=== PATIENT | female | born 1950 | race Caucasian/White ===

== ENCOUNTER 2022-06-07 19:57 | Inpatient (IN) | payer MEDICARE, BC, OTHER ==
[~2022-06-07] VITALS: Ht 152.4 cm; Wt 52.2 kg
--- NOTE | 2022-06-07 20:00 | NUR ---
Dr. Welsh at bedside. MSE in progress.
[2022-06-07] MEDS ORDERED: INSULIN REGULAR, HUMAN 300 UNIT/3 ML VIAL IV ONE (20:15)
[2022-06-07 20:27] LABS: HEMATOCRIT 23.6 % (31.2-41.9); MEAN CORPUSCULAR VOLUME 101.5 fL (75.5-95.3); PLATELET COUNT (AUTO) 154 K/uL (179-408)
[2022-06-07 20:35] LABS: CARBON DIOXIDE 35 mmol/L (21-32); CHLORIDE 89 mmol/L (98-107); CREATININE 4.4 mg/dL (0.6-1.3); GLUCOSE 290 mg/dL (74-106); POTASSIUM 2.9 mmol/L (3.5-5.1); UREA NITROGEN, BLOOD 39 mg/dL (7-18)
--- NOTE | 2022-06-07 20:35 | NUR ---
Accucheck done on patient and it showed 289.
[2022-06-07] MEDS ORDERED: POTASSIUM BICARBONATE/CIT AC 25 MEQ TABLET.EFF PO ONE (21:00)
[2022-06-07] MEDS ORDERED: POTASSIUM BICARBONATE/CIT AC 25 MEQ TABLET.EFF ONE (21:05)
[2022-06-07] MEDS ORDERED: ISOS30TA86 PO (21:06)
[2022-06-07] MEDS ORDERED: CARV25TA2 PO (21:06)
[2022-06-07] MEDS ORDERED: ATOR80TA PO (21:06)
[2022-06-07] MEDS ORDERED: ASPI81TA31 PO (21:06)
[2022-06-07] MEDS ORDERED: TICA90TA PO (21:06)
[2022-06-07] MEDS ORDERED: B COMPLEX WITH FOLIC PO (21:06)
[2022-06-07] MEDS ORDERED: FURO40TA5 PO (21:06)
[2022-06-07] MEDS ORDERED: SERT50TA PO (21:06)
[2022-06-07] MEDS ORDERED: FAMO-132 PO (21:06)
[2022-06-07] MEDS ORDERED: SEVE800T8 PO (21:06)
[2022-06-07] MEDS ORDERED: ONDA4TAB5 PO (21:06)
[2022-06-07] MEDS ORDERED: LEVO50TA8 PO (21:06)
[2022-06-07] MEDS ORDERED: INSU100C SUBCUT (21:06)
[2022-06-07] MEDS ORDERED: AMLO10TA59 PO (21:06)
[2022-06-07] MEDS ORDERED: LISI40TA13 PO (21:06)
[2022-06-07] MEDS ORDERED: LOPE2CAP PO (21:06)
[2022-06-07] MEDS ORDERED: ACET-2154 PO (21:06)
--- NOTE | 2022-06-07 22:00 | NUR ---
Patient resting at bedside NAD noted.
[2022-06-07] MEDS ORDERED: HYDROCODONE/APAP 5-325MG TABLET PO ONE (22:30)
[2022-06-07] MEDS ORDERED: HYDROCODONE/APAP 5-325MG TABLET ONE (22:36)
[2022-06-07] MEDS ORDERED: METOPROLOL TARTRATE 50 MG TABLET PO ONE (22:45)
[2022-06-07] MEDS ORDERED: ASPIRIN 81 MG TAB.CHEW PO ONE (22:45)
[2022-06-07] MEDS ORDERED: NITROGLYCERIN OINT 1 GM PACKET TP ONE ×2 (22:45→23:13)
[2022-06-07] MEDS ORDERED: ONDANSETRON 4 MG/2 ML VIAL IV ONE (22:45)
[2022-06-07] MEDS ORDERED: HYDROMORPHONE 1 MG/1 ML DISP.SYRIN IV ONE (22:45)
[2022-06-07] MEDS ORDERED: HEPARIN SODIUM,PORCINE/PF 100 UNIT/ML, 5ML SYR IV ONE (23:00)
[2022-06-07] MEDS ORDERED: HYDROMORPHONE 1 MG/1 ML DISP.SYRIN ONE (23:07)
[2022-06-07] MEDS ORDERED: ONDANSETRON 4 MG/2 ML VIAL ONE (23:12)
[2022-06-07] MEDS ORDERED: ASPIRIN 81 MG TAB.CHEW ONE (23:12)
[2022-06-07] MEDS ORDERED: METOPROLOL TARTRATE 50 MG TABLET ONE (23:13)
[2022-06-07] MEDS ORDERED: HEPARIN SODIUM,PORCINE 5,000 UNITS/ML VIAL ONE (23:22)
[2022-06-07] MEDS ORDERED: PROCHLORPERAZINE EDISYLATE 10 MG/2 ML VIAL ONE (23:43)
[2022-06-07] MEDS ORDERED: PROCHLORPERAZINE EDISYLATE 10 MG/2 ML VIAL IV ONE (23:45)
--- NOTE | 2022-06-08 | NUR ---
Patient sleeping. NAD noted. Will continue with doctor's orders.
--- NOTE | 2022-06-08 02:00 | NUR ---
Patient sleeping. Easily wokened.
[2022-06-08] MEDS ORDERED: FUROSEMIDE 40 MG/4 ML VIAL IV ONE (03:30)
[2022-06-08] MEDS ORDERED: FUROSEMIDE 40 MG/4 ML VIAL ONE (03:50)
--- NOTE | 2022-06-08 04:00 | NUR ---
PT sleeping. NAD noted.
--- NOTE | 2022-06-08 06:00 | NUR ---
Patient awake. No changes in mental status.
--- NOTE | 2022-06-08 07:30 | NUR ---
Called Tele to give report, Nurse Lynne perez. Will call again.
--- NOTE | 2022-06-08 08:00 | NUR ---
Called to give report, nurse Lynne perez d/t covid pts.
--- NOTE | 2022-06-08 08:25 | NUR ---
Called Tele to give report, nurse yLnne is unavailable. Will receive a call back soon.
--- NOTE | 2022-06-08 09:00 | NUR ---
Gave report to Anat QUIROS.
[2022-06-08 10:00] VITALS: BP 121/46
--- NOTE | 2022-06-08 10:10 | NUR ---
Pt stable, V/S: BP = 125/57, HR = 80, RR = 18, O2 Sat = 93. On 2lpm of O2 via nc. Transported to 330, Tele, via stretcher, received by Lynne QUIROS. Pt vomited x1, denies nausea and dizziness.
--- NOTE | 2022-06-08 10:10 | NUR ---
ADMITTED PATIENT FROM HOME VIA ER ADMISSION WITH ADMITTING DIAGNOSIS OF HYPERGLYCEMIA, ALERT AND ORIENTED X3. LATEST HGT- 294MG/DL WITH SALINE HEPLOCK ON LEFT HAND. PATIENT ON ROOM AIR SATURATING ON 94%. DENIES PAINS AND DISCOMFORT. ROUTINE ADMISSION PRECAUTION INITIATED. INFORM MD WITH THE ADMISSION.
[2022-06-08] MEDS ORDERED: DEXTROSE 50% 50 ML DISP.SYRIN IV PRN ×2 (10:15→16:15)
[2022-06-08] MEDS ORDERED: INSULIN REGULAR, HUMAN 300 UNIT/3 ML VIAL SQ PRN (10:15)
--- NOTE | 2022-06-08 10:59 | NUR ---
Received a call from [facility] relaying lab result Troponin - 626 going down documented. Blood glucose monitoring AC and HS done with sliding scale
[2022-06-08] MEDS ORDERED: BLOOD SUGAR DIAGNOSTIC 1 EACH STRIP VI SCH (11:30)
[2022-06-08 12:00] VITALS: BP 115/46
[2022-06-08 16:00] VITALS: BP 104/49
[2022-06-08] MEDS ORDERED: INSULIN REGULAR, HUMAN 300 UNITS/3 ML VIAL SQ PRN (16:15)
[2022-06-08] MEDS ORDERED: NITROGLYCERIN 0.4 MG/TAB BOTTLE SL PRN (16:15)
[2022-06-08] MEDS ORDERED: HYDROCODONE/APAP 5-325MG TABLET PO PRN (16:30)
[2022-06-08] MEDS ORDERED: CALCIUM CARBONATE 500 MG TAB.CHEW PO PRN (16:30)
[2022-06-08] MEDS: BLOOD SUGAR DIAGNOSTIC 1 EACH STRIP VI SCH ×2 (16:31→21:15)
[2022-06-08] MEDS: INSULIN REGULAR, HUMAN 300 UNIT/3 ML VIAL SQ PRN (16:33)
[2022-06-08] MEDS ORDERED: ACETAMINOPHEN 325 MG TABLET PO PRN (17:00)
[2022-06-08] MEDS ORDERED: LOPERAMIDE HCL 2 MG CAPSULE PO PRN (17:00)
[2022-06-08] MEDS ORDERED: CEFTRIAXONE 1 G in IV DEXTROSE 5% 50 ML IV SCH (17:00)
--- NOTE | 2022-06-08 17:49 | NUR ---
Started Iv medications, no signs of reactions. Monitored blood glucose AC and HS, given regular insulin with sliding scale
[2022-06-08 17:50] LABS: BILIRUBIN,DIRECT 0.2 mg/dL (0.0-0.2); BILIRUBIN,TOTAL 0.4 mg/dL (0.2-1.0); TOTAL PROTEIN, SERUM 7.2 g/dL (6.4-8.2)
[2022-06-08 17:51] LABS: BILIRUBIN,DIRECT 0.1 mg/dL (0.0-0.2); BILIRUBIN,TOTAL 0.3 mg/dL (0.2-1.0)
[2022-06-08] MEDS: CARVEDILOL 25 MG TABLET PO SCH (18:00)
[2022-06-08] MEDS: FUROSEMIDE 40 MG/4 ML VIAL IV SCH (18:13)
[2022-06-08] MEDS: SEVELAMER CARBONATE 800 MG TABLET PO SCH (18:13)
[2022-06-08 20:00] VITALS: BP 130/48
[2022-06-08] MEDS ORDERED: FUROSEMIDE 40 MG/4 ML VIAL IV SCH (21:00)
[2022-06-08] MEDS: ATORVASTATIN 40 MG TABLET PO SCH (21:02)
[2022-06-08] MEDS: HEPARIN SODIUM,PORCINE 5,000 UNITS/ML VIAL SQ SCH (21:03)
[2022-06-08] MEDS: TICAGRELOR 90 MG TABLET PO SCH (21:05)
[2022-06-08] MEDS: ONDANSETRON HCL 4 MG TABLET PO PRN (23:33)
[2022-06-09] VITALS (20 sets, daily range): BP systolic 64–165; BP diastolic 13–95
[2022-06-09] MEDS: LEVOTHYROXINE SODIUM 50 MCG TABLET PO SCH (06:13)
[2022-06-09] MEDS: PANTOPRAZOLE SODIUM 40 MG TABLET.DR PO SCH (06:13)
[2022-06-09] MEDS: BLOOD SUGAR DIAGNOSTIC 1 EACH STRIP VI SCH ×2 (06:27→11:38)
[2022-06-09 07:48] LABS: CARBON DIOXIDE 28 mmol/L (21-32); CHLORIDE 91 mmol/L (98-107); CREATININE 6.2 mg/dL (0.6-1.3); GLUCOSE 242 mg/dL (74-106); MAGNESIUM 2.1 mg/dL (1.8-2.4); PHOSPHOROUS 4.2 mg/dL (2.5-4.9); UREA NITROGEN, BLOOD 52 mg/dL (7-18)
[2022-06-09 08:14] LABS: MEAN CORPUSCULAR HEMOGLOBIN 33.8 uug (24.7-32.8); MEAN CORPUSCULAR VOLUME 102.6 fL (75.5-95.3); PLATELET COUNT (AUTO) 155 K/uL (179-408)
[2022-06-09] MEDS: SEVELAMER CARBONATE 800 MG TABLET PO SCH ×3 (08:16→18:00)
[2022-06-09] MEDS: HEPARIN SODIUM,PORCINE 5,000 UNITS/ML VIAL SQ SCH (08:16)
[2022-06-09] MEDS: SERTRALINE HCL 50 MG TABLET PO SCH (08:17)
[2022-06-09] MEDS: FUROSEMIDE 40 MG/4 ML VIAL IV SCH (08:17)
[2022-06-09] MEDS: VITAMIN B COMPLEX 1 TABLET PO SCH (08:19)
[2022-06-09] MEDS: TICAGRELOR 90 MG TABLET PO SCH ×2 (08:19→21:00)
[2022-06-09] MEDS: INSULIN REGULAR, HUMAN 300 UNIT/3 ML VIAL SQ PRN ×2 (08:23→11:40)
[2022-06-09] MEDS: CARVEDILOL 25 MG TABLET PO SCH (08:51)
[2022-06-09] MEDS ORDERED: ASPIRIN EC 81 MG TABLET.DR PO SCH (09:00)
[2022-06-09] MEDS ORDERED: ASPIRIN 81 MG TAB.CHEW PO SCH (09:00)
[2022-06-09] MEDS ORDERED: LISINOPRIL 20 MG TABLET PO SCH (09:00)
[2022-06-09] MEDS ORDERED: INSULIN LISPRO 5 UNIT XX SCH (09:00)
[2022-06-09] MEDS ORDERED: ISOSORBIDE MONONITRATE 30 MG TAB.SR.24H PO SCH (09:00)
[2022-06-09] MEDS ORDERED: AMLODIPINE 10 MG TABLET PO SCH (09:00)
--- NOTE | 2022-06-09 09:00 | NUR ---
photo optics technician reported to the nurse that pt. has SVT. Reported to Dr. Ruano and no new order received. Will keep monitoring the pt.
[2022-06-09 10:56] LABS: HEMATOCRIT 18.3 % (31.2-41.9)
[2022-06-09] MEDS ORDERED: NOREPINEPHRINE BITARTRATE 8 MG in IV NORMAL SALINE 242 ML IV PRN (12:30)
[2022-06-09] MEDS ORDERED: IV NORMAL SALINE 500 ML IV ONE (12:30)
[2022-06-09] MEDS ORDERED: PIPERACILLIN SODIUM/TAZOBACTAM 3.375 G in IV DEXTROSE 5% 50 ML IV SCH (14:00)
--- NOTE | 2022-06-09 14:55 | NUR ---
ASSUME CARE OF PATIENT AT THIS TIME. PATIENT IS LETHARGIC AND SUPINE IN BED. LEVOPHED IN PROGRESS ORDERED, NOTED ORDERED., NOTED. O2 VIA NC AT 2L/NC.TELEMETRY AND CONTINUOUS PULSE OX IN PROGRESS. PLAN TO TRANSFER PATIENT TO ICU. CARLOS AV SHUNT IN PLACE, REINFORCED WITH KERLEX. AMY MIDLINE INTACT. WILL CONTINUE TO IMONITOR V/S.
[2022-06-09] MEDS ORDERED: VANCOMYCIN IV 1,000 MG in IV DEXTROSE 5% 250 ML IV ONE (15:00)
--- NOTE | 2022-06-09 15:15 | NUR ---
TRANSFERED TO ICU, ORDERED VIA BED. PT ACCOMPANIED BY 2 RNS INCLUDING THIS NURSE. PT IS IN NO DISTRESS. LEVOPHED IN PROGRESS AT .31 MCG/KG. BLOOD IS AVAILABLE IN THE BLOOD BANK FOR 1 UNIT PRBC TO BE TRANSFUSED DURING DIALYSIS. DIALYSIS NURSE NOTIFIED. LEVOPHED IN PROGRESS. TITRATE TO EFFECT. O2 AT 4L NC. HOB 30.
[2022-06-09] MEDS: PIPERACILLIN/TAZO 2.25 G in IV DEXTROSE 5% 50 ML IV SCH ×2 (16:23→22:00)
[2022-06-09] MEDS: ONDANSETRON 4 MG/2 ML VIAL IV PRN (16:27)
--- NOTE | 2022-06-09 16:31 | NUR ---
HR 104 BP 160/31 HR 78 . Titrating levophed.
--- NOTE | 2022-06-09 18:30 | NUR ---
vanco given at this time due to instability and transfer to ICU. Blood transfusion completed.
--- NOTE | 2022-06-09 18:39 | NUR ---
DIALYSIS IS IN PROGRESS. ISHAAN DEXTER.T IS LETHARGIC. TELEPHONE CONSENT OBTAINED FROM SON KIMBERLY. SBP 155. LEVOPHED OFF.
[2022-06-09 18:48] LABS: EOSINOPHILS % (MANUAL) 1 % (0-8); LYMPHOCYTES % (MANUAL) 7 % (20-40); MONOCYTES % (MANUAL) 1 % (2-10); NEUTROPHILS % (MANUAL) 91 % (42-75)
[2022-06-09] MEDS ORDERED: DEXTROSE 50% 50 ML DISP.SYRIN IV PRN (19:00)
--- NOTE | 2022-06-09 19:50 | NUR ---
VS stable Levophed turned off. Blood is in progress.
--- NOTE | 2022-06-09 20:00 | NUR ---
PT TOLERATING BLOOD TRANSFUSION. AFEBRILE. NO S/S OF ADVERSE REACTION. PT IS ANURIC BASELINE. BS DIMINISHED. AFEBRILE, NO EDEMA
--- NOTE | 2022-06-09 20:40 | NUR ---
Dialysis completed and rmoval of 2000ml per dialysis nurse. pt is resting and is in no apparent distress.
[2022-06-09] MEDS: ATORVASTATIN 40 MG TABLET PO SCH (21:00)
--- NOTE | 2022-06-09 23:05 | NUR ---
Patient dessats 79 with o2 off. Pt has a intermittent dry cough. No SOB Denies. Dr Sarkar notified via telephone. abg ordered BY .
[2022-06-09 23:35] LABS: ABG HCO3 32.4 mmol/L; ABG PCO2 39.9 mmHg (35.0-45.0); ABG PH 7.528 (7.350-7.450); ABG PO2 61.3 mmHg (75.0-100.0); ABG SITE RIGHT RADIAL; ABG TOTAL HEMOGLOBIN 9.5 G/dL (12.0-16.0); COHb 0.8 % (0.5-1.5); MetHb 0.3 % (0.0-1.5); O2Hb 91.9 % (94.0-97.0); VENT MODE Nasal Cannula
[2022-06-10] VITALS (24 sets, daily range): BP systolic 109–161; BP diastolic 40–84
--- NOTE | 2022-06-10 | NUR ---
ABG REPORT CALLED INTO DR ABBOTT. PATIENT TO CONTINIE ON O2 AT 3L.
--- NOTE | 2022-06-10 04:13 | NUR ---
PT HAD AN EPISODE OF GREENISH EMESISIS. PT POSITIONED ON LEFT LATERAL AND HOB 30 DEGREE AND PAGED. AWAITING RESPONSE.
[2022-06-10 05:33] LABS: HEMATOCRIT 24.3 % (31.2-41.9); MEAN CORPUSCULAR HEMOGLOBIN 32.9 uug (24.7-32.8); MEAN CORPUSCULAR VOLUME 97.3 fL (75.5-95.3); PLATELET COUNT (AUTO) 185 K/uL (179-408)
[2022-06-10 05:48] LABS: BILIRUBIN,DIRECT 0.1 mg/dL (0.0-0.2); BILIRUBIN,TOTAL 0.6 mg/dL (0.2-1.0)
[2022-06-10] MEDS: PIPERACILLIN/TAZO 2.25 G in IV DEXTROSE 5% 50 ML IV SCH ×3 (06:23→21:22)
[2022-06-10] MEDS: BLOOD SUGAR DIAGNOSTIC 1 EACH STRIP VI SCH ×4 (06:23→17:43)
[2022-06-10 06:39] LABS: ALANINE AMINOTRANSFERASE 72 U/L (14-59); ALKALINE PHOSPHATASE 69 U/L (50-136); ASPARTATE AMINOTRANSFERASE 135 U/L (15-37); BILIRUBIN,TOTAL 0.5 mg/dL (0.2-1.0); CARBON DIOXIDE 31 mmol/L (21-32); CHLORIDE 93 mmol/L (98-107); CREATININE 3.7 mg/dL (0.6-1.3); GLUCOSE 105 mg/dL (74-106); MAGNESIUM 1.9 mg/dL (1.8-2.4); PHOSPHOROUS 3.1 mg/dL (2.5-4.9); POTASSIUM 2.9 mmol/L (3.5-5.1); TOTAL PROTEIN, SERUM 6.8 g/dL (6.4-8.2); UREA NITROGEN, BLOOD 23 mg/dL (7-18)
[2022-06-10 06:50] LABS: BILIRUBIN,DIRECT 0.1 mg/dL (0.0-0.2)
--- NOTE | 2022-06-10 07:00 | NUR ---
END OF SHIFT REPORT INDORSE TO MORNING NURSE. CHART CHECK COMPPLETED AND LAB RESULTS: K LEVEL 2.9. UNABLE TO REACH ANSWERING SERVICE FOR EPIC ENDORSE MORNING RN TO FOLLOW UP WITH PATIENT'S MD. HGB 8.2. PT I S IN NO DISTRESS,
--- NOTE | 2022-06-10 07:24 | NUR ---
SBAR REPORT RECEIVED FROM SANA CERON/RN ,K+ 2.9 [facility] WAS PAGED.
[2022-06-10] MEDS: PANTOPRAZOLE SODIUM 40 MG TABLET.DR PO SCH ×2 (07:53→08:24)
[2022-06-10] MEDS: LEVOTHYROXINE SODIUM 50 MCG TABLET PO SCH (07:53)
[2022-06-10] MEDS: TICAGRELOR 90 MG TABLET PO SCH ×2 (07:54→21:23)
[2022-06-10] MEDS: POTASSIUM CHLORIDE 50 ML IV SCH ×2 (07:54→08:37)
[2022-06-10] MEDS ORDERED: POTASSIUM CHLORIDE 50 ML IV SCH (08:00)
[2022-06-10] MEDS: SEVELAMER CARBONATE 800 MG TABLET PO SCH ×3 (08:27→17:41)
[2022-06-10] MEDS: VITAMIN B COMPLEX 1 TABLET PO SCH (08:28)
[2022-06-10] MEDS: SERTRALINE HCL 50 MG TABLET PO SCH (08:28)
--- NOTE | 2022-06-10 11:25 | NUR ---
went to nuc.scan.tolerated well
[2022-06-10] MEDS ORDERED: VANCOMYCIN IV 500 MG in IV DEXTROSE 5% 100 ML IV PRN (12:00)
[2022-06-10 12:07] LABS: HEPATITIS B SURFACE AG Negative (Negative)
--- NOTE | 2022-06-10 13:40 | NUR ---
Back to bed from Nucl.scan.
--- NOTE | 2022-06-10 15:15 | NUR ---
went back to Nucl.for gallbladder scan. Tolerated well. [id number] back to room.
[2022-06-10] MEDS: INSULIN REGULAR, HUMAN 300 UNIT/3 ML VIAL SQ PRN (17:40)
--- NOTE | 2022-06-10 18:15 | NUR ---
Pt.was seen by .
--- NOTE | 2022-06-10 20:00 | NUR ---
Assume care OF pt, PT is alert and oriented times 4. Pt offered no complaint. HOB 30. Pt encourage to call for assist. Safe=ty maintained.
[2022-06-10] MEDS: ATORVASTATIN 40 MG TABLET PO SCH (21:23)
[2022-06-11] VITALS (11 sets, daily range): BP systolic 113–156; BP diastolic 17–76
[2022-06-11] MEDS: BLOOD SUGAR DIAGNOSTIC 1 EACH STRIP VI SCH ×5 (00:28→21:00)
[2022-06-11] MEDS: INSULIN REGULAR, HUMAN 300 UNIT/3 ML VIAL SQ PRN ×4 (00:33→16:55)
[2022-06-11] MEDS ORDERED: LIDOCAINE 2% (GLYDO= UROJET) 10 ML JELLY MM PRN (02:30)
[2022-06-11] MEDS: PIPERACILLIN/TAZO 2.25 G in IV DEXTROSE 5% 50 ML IV SCH ×3 (05:05→22:00)
[2022-06-11 06:10] LABS: HEMATOCRIT 24.4 % (31.2-41.9); MEAN CORPUSCULAR HEMOGLOBIN 32.6 uug (24.7-32.8); MEAN CORPUSCULAR VOLUME 97.7 fL (75.5-95.3); PLATELET COUNT (AUTO) 216 K/uL (179-408)
[2022-06-11] MEDS: LEVOTHYROXINE SODIUM 50 MCG TABLET PO SCH (06:16)
[2022-06-11] MEDS: SEVELAMER CARBONATE 800 MG TABLET PO SCH ×3 (06:16→18:06)
[2022-06-11 06:26] LABS: CARBON DIOXIDE 32 mmol/L (21-32); CHLORIDE 97 mmol/L (98-107); CREATININE 5.4 mg/dL (0.6-1.3); GLUCOSE 158 mg/dL (74-106); MAGNESIUM 2.1 mg/dL (1.8-2.4); PHOSPHOROUS 3.8 mg/dL (2.5-4.9); POTASSIUM 3.4 mmol/L (3.5-5.1); UREA NITROGEN, BLOOD 40 mg/dL (7-18)
[2022-06-11] MEDS: SERTRALINE HCL 50 MG TABLET PO SCH (08:13)
[2022-06-11] MEDS: VITAMIN B COMPLEX 1 TABLET PO SCH (08:15)
[2022-06-11] MEDS: TICAGRELOR 90 MG TABLET PO SCH ×2 (08:15→21:45)
[2022-06-11 08:17] LABS: BILIRUBIN,DIRECT 0.2 mg/dL (0.0-0.2); BILIRUBIN,TOTAL 0.5 mg/dL (0.2-1.0); TOTAL PROTEIN, SERUM 6.5 g/dL (6.4-8.2)
[2022-06-11] MEDS ORDERED: POTASSIUM CHLORIDE 20 MEQ TAB.PRT.SR PO ONE (10:30)
--- NOTE | 2022-06-11 11:30 | NUR ---
Received patient lying on bed from CCU transported via stretcher, alert and oriented. With O2 inhalation @2 LPM via nasal cannula. Midline on right upper arm and saline lock at right hand also. Patient has Left upper arm shunt for dialysis intact and clean. Denies any pain and discomfort. Needs attended
[2022-06-11] MEDS: ONDANSETRON 4 MG/2 ML VIAL IV PRN (12:48)
[2022-06-11] MEDS ORDERED: DEXTROSE 50% 50 ML DISP.SYRIN IV PRN (15:30)
--- NOTE | 2022-06-11 17:00 | NUR ---
Started Dialysis for the patient. Kept monitored. No complains made
[2022-06-11] MEDS: ATORVASTATIN 40 MG TABLET PO SCH (21:44)
[2022-06-11] MEDS ORDERED: VANCOMYCIN IV 1,000 MG in IV DEXTROSE 5% 250 ML IV ONE (22:00)
[2022-06-12] VITALS: BP 122/28
[2022-06-12 04:00] VITALS: BP 148/44
[2022-06-12] MEDS: PIPERACILLIN/TAZO 2.25 G in IV DEXTROSE 5% 50 ML IV SCH ×3 (05:35→22:00)
[2022-06-12 06:56] LABS: HEMATOCRIT 24.5 % (31.2-41.9); MEAN CORPUSCULAR HEMOGLOBIN 33.2 uug (24.7-32.8); MEAN CORPUSCULAR VOLUME 98.3 fL (75.5-95.3); PLATELET COUNT (AUTO) 223 K/uL (179-408)
[2022-06-12] MEDS: LEVOTHYROXINE SODIUM 50 MCG TABLET PO SCH (06:57)
[2022-06-12] MEDS: PANTOPRAZOLE SODIUM 40 MG TABLET.DR PO SCH (06:57)
[2022-06-12 07:23] LABS: CARBON DIOXIDE 32 mmol/L (21-32); CHLORIDE 97 mmol/L (98-107); CREATININE 3.8 mg/dL (0.6-1.3); GLUCOSE 191 mg/dL (74-106); MAGNESIUM 1.9 mg/dL (1.8-2.4); PHOSPHOROUS 3.3 mg/dL (2.5-4.9); POTASSIUM 3.8 mmol/L (3.5-5.1); UREA NITROGEN, BLOOD 20 mg/dL (7-18)
[2022-06-12] MEDS: BLOOD SUGAR DIAGNOSTIC 1 EACH STRIP VI SCH ×4 (07:23→21:46)
--- NOTE | 2022-06-12 07:24 | NUR ---
REPORT GIVEN TO ISHAAN LYNN
[2022-06-12] MEDS: INSULIN REGULAR, HUMAN 300 UNIT/3 ML VIAL SQ PRN ×3 (07:47→16:25)
[2022-06-12] MEDS: ONDANSETRON HCL 4 MG TABLET PO PRN (07:48)
[2022-06-12] MEDS: SEVELAMER CARBONATE 800 MG TABLET PO SCH ×3 (07:49→17:04)
[2022-06-12] MEDS: SERTRALINE HCL 50 MG TABLET PO SCH (07:50)
[2022-06-12] MEDS: NEPRO (VANILLA) 237 ML CAN PO SCH (07:51)
[2022-06-12] MEDS: TICAGRELOR 90 MG TABLET PO SCH ×2 (08:00→21:00)
[2022-06-12] MEDS: VITAMIN B COMPLEX 1 TABLET PO SCH (08:00)
--- NOTE | 2022-06-12 08:00 | NUR ---
AWAKE ALERT AND ORIENTED X3, DENIES PAIN OR SOB WITH 2L NC SATURATING 98%. REQUIRES MIN MAX ASSIST WITH ADLS. SR ON MONITOR
[2022-06-12 08:32] LABS: BILIRUBIN,DIRECT 0.2 mg/dL (0.0-0.2); BILIRUBIN,TOTAL 0.5 mg/dL (0.2-1.0); TOTAL PROTEIN, SERUM 6.4 g/dL (6.4-8.2)
[2022-06-12 08:47] LABS: BILIRUBIN,DIRECT 0.1 mg/dL (0.0-0.2); BILIRUBIN,TOTAL 0.5 mg/dL (0.2-1.0)
[2022-06-12 12:00] VITALS: BP 143/65
--- NOTE | 2022-06-12 12:00 | NUR ---
NO ACUTE CHANGE FROM MORNING ASSESSMENT, MEDICATED X1 FOR NAUSEA WITH RELIEF
--- NOTE | 2022-06-12 14:30 | NUR ---
SEEN BY Isi GREGORY PLAN DISCHARGE TODAY AWAITING ID RECOMMENDATION FOR ANTIBIOTIC
[2022-06-12 16:00] VITALS: BP 127/45
[2022-06-12 16:06] VITALS: BP 127/45
[2022-06-12] MEDS ORDERED: AMOX-427 PO (17:09)
[2022-06-12] MEDS ORDERED: Nepro PO (17:09)
--- NOTE | 2022-06-12 18:29 | NUR ---
TRANSMITTER SUPERVISOR NOTIFIED OF DC PLAN , ADVISE GIVEN FOR AM DISCHARGE
[2022-06-12 20:00] VITALS: BP 106/58
[2022-06-12] MEDS: ATORVASTATIN 40 MG TABLET PO SCH (21:00)
[2022-06-13] VITALS: BP 147/58
[2022-06-13] MEDS: INSULIN REGULAR, HUMAN 300 UNIT/3 ML VIAL SQ PRN ×3 (03:03→11:53)
[2022-06-13 04:00] VITALS: BP 154/73
--- NOTE | 2022-06-13 06:00 | NUR ---
Patient had a good night sleep, she is AAOx4 ; she tolerated her medications well. No respiratory distress observed, she denies pain. She is stable and still resting at this time. Will continue to monitor patient for safety.
[2022-06-13] MEDS: PIPERACILLIN/TAZO 2.25 G in IV DEXTROSE 5% 50 ML IV SCH (06:04)
[2022-06-13] MEDS: PANTOPRAZOLE SODIUM 40 MG TABLET.DR PO SCH (06:04)
[2022-06-13] MEDS: LEVOTHYROXINE SODIUM 50 MCG TABLET PO SCH (06:05)
[2022-06-13] MEDS: BLOOD SUGAR DIAGNOSTIC 1 EACH STRIP VI SCH ×2 (07:26→11:51)
--- NOTE | 2022-06-13 08:00 | NUR ---
AWAKE ALERT AND ORIENTED X3 NO SS OF PAIN OR DISTRESS. SR ON MONITOR
[2022-06-13 08:19] LABS: BILIRUBIN,DIRECT 0.1 mg/dL (0.0-0.2); BILIRUBIN,TOTAL 0.6 mg/dL (0.2-1.0)
[2022-06-13] MEDS: SEVELAMER CARBONATE 800 MG TABLET PO SCH ×2 (08:37→12:00)
[2022-06-13] MEDS: VITAMIN B COMPLEX 1 TABLET PO SCH (08:38)
[2022-06-13] MEDS: NEPRO (VANILLA) 237 ML CAN PO SCH (08:38)
[2022-06-13] MEDS: TICAGRELOR 90 MG TABLET PO SCH (08:38)
[2022-06-13] MEDS: SERTRALINE HCL 50 MG TABLET PO SCH (08:38)
[2022-06-13 09:40] LABS: ALANINE AMINOTRANSFERASE 77 U/L (14-59); ALKALINE PHOSPHATASE 68 U/L (50-136); ASPARTATE AMINOTRANSFERASE 89 U/L (15-37); BILIRUBIN,DIRECT < 0.1 mg/dL (0.0-0.2); BILIRUBIN,TOTAL 0.6 mg/dL (0.2-1.0); TOTAL PROTEIN, SERUM 6.6 g/dL (6.4-8.2)
--- NOTE | 2022-06-13 10:00 | NUR ---
SEEN BY HOSPITALIST AND STOCK REPLENISHER DC PLAN FOR [facility] PICK-UP TIME 1200
--- NOTE | 2022-06-13 12:27 | NUR ---
DISCHARGED TO [facility] VIA AMBULANCE, STABLE. REPORT GIVEN TO SNF STAFF
== END 2022-06-13 12:21 | DRG 280 ==
LOC: ER 20:06 → TELE3 06-08 09:33 → CCU 06-09 15:30 → TELE3 06-11 10:57
PROVIDERS: ADMIT Registered Nurse; ATTEND Registered Nurse
PROC: 05H533Z Insertion of Infusion Device into Right Subclavian Vein, Percutaneous Approach (ICD-10-PCS; 2022-06-08)
PROC: B546ZZA Ultrasonography of Right Subclavian Vein, Guidance (ICD-10-PCS; 2022-06-08)
PROC: 30243N1 Transfusion of Nonautologous Red Blood Cells into Central Vein, Percutaneous Approach (ICD-10-PCS; principal; 2022-06-09)
PROC: 5A1D70Z Performance of Urinary Filtration, Intermittent, Less than 6 Hours Per Day (ICD-10-PCS; 2022-06-09)
DX: I13.2 Hypertensive heart and chronic kidney disease with heart failure and with stage 5 chronic kidney disease, or end stage renal disease (principal); I21.A1 Myocardial infarction type 2; I50.33 Acute on chronic diastolic (congestive) heart failure; J96.01 Acute respiratory failure with hypoxia; N18.6 End stage renal disease; J15.9 Unspecified bacterial pneumonia; R53.2 Functional quadriplegia; K80.01 Calculus of gallbladder with acute cholecystitis with obstruction; E03.9 Hypothyroidism, unspecified; E11.22 Type 2 diabetes mellitus with diabetic chronic kidney disease; E11.65 Type 2 diabetes mellitus with hyperglycemia; E87.6 Hypokalemia; E78.5 Hyperlipidemia, unspecified; I25.10 Atherosclerotic heart disease of native coronary artery without angina pectoris; D63.8 Anemia in other chronic diseases classified elsewhere; Z20.822 Contact with and (suspected) exposure to COVID-19; R47.02 Dysphasia; R53.1 Weakness; N25.0 Renal osteodystrophy; Z99.2 Dependence on renal dialysis; Z96.643 Presence of artificial hip joint, bilateral; Z95.1 Presence of aortocoronary bypass graft; Z98.61 Coronary angioplasty status; Z99.3 Dependence on wheelchair; E11.43 Type 2 diabetes mellitus with diabetic autonomic (poly)neuropathy; K31.84 Gastroparesis; R13.10 Dysphagia, unspecified; Z91.81 History of falling; M89.8X9 Other specified disorders of bone, unspecified site
CPT/HCPCS: 36415; 36600; 70030-TC; 71045; 76700; 78445; 83605; 83615; 83690; 83735; 84100; 84484; 85025; 86140; 86706; 86850; 86900; 86901; 86920; 87040; 87340; 90937; 93005; 93307; A4663; A9537; G0378; J0696; J0780; J1170; J1644; J1815; J1940; J2405; J2543; J3370; J3480; J3490; J7040; J7050; J7120; P9016; Q0162; U0003